=== PATIENT | female | born 1985 | race Hispanic/Latino ===

== ENCOUNTER 2018-08-02 18:26 | Inpatient (IN) | payer BC, OTHER | END 2018-08-05 14:45 | disposition home or self-care (01) | LOC: EDH 18:26 → WSH 08-03 01:30 → EDHIP 18:27 | PROC: 0UT00ZZ Resection of Right Ovary, Open Approach (ICD-10-PCS; principal; 2018-08-03 12:45) | PROC: 0WJJ0ZZ Inspection of Pelvic Cavity, Open Approach (ICD-10-PCS; 2018-08-03 12:45) | PROC: 0UT50ZZ Resection of Right Fallopian Tube, Open Approach (ICD-10-PCS; 2018-08-03 12:45) | PROC: 0UB60ZZ Excision of Left Fallopian Tube, Open Approach (ICD-10-PCS; 2018-08-03 12:45) | DX: N70.93 Salpingitis and oophoritis, unspecified (principal); D72.829 Elevated white blood cell count, unspecified; N80.9 Endometriosis, unspecified; N70.91 Salpingitis, unspecified ==